=== PATIENT | male | born 1950 | race Caucasian/White ===

== ENCOUNTER → 2023-03-23 | Outpatient (CLI) | payer MEDICARE, SELFPAY ==
--- NOTE | 2023-03-23 08:58 | ART_ITS ---
Reason For Study: PVD Procedure A bilateral lower extremity continuous wave Doppler with analog waveform analysis and ankle brachial indexes. Left Segmental Pressures Left brachial= 134mmHg. Left posterior tibial artery = 162mmHg. Left dorsalis pedis artery = 142mmHg. Left digit = 106 mmHg. The left posterior tibial artery waveforms are triphasic. The left dorsalis pedis waveforms are triphasic. Right Segmental Pressures Right brachial= 128mmHg. Right posterior tibial artery = 148mmHg. Right dorsalis pedis artery = 125mmHg. Right digit = 114 mmHg. The right posterior tibial artery waveforms are triphasic. The right dorsalis pedis waveforms are triphasic. Indices The right ankle brachial index by the posterior tibial artery is 1.10. The right ankle brachial index by the dorsalis pedis is 0.93. The right digital-brachial index is 0.85. The left ankle brachial index by the posterior tibial artery is 1.21. The left ankle brachial index by the dorsalis pedis is 1.06. The left digital-brachial index is 0.79. VL/Ankle Brachial Index Interpretation Summary Bilateral normal at rest with triphasic flow and GERMAN 1.1 and 1.21. Ordering Physician: Corky Coelho Referring Physician: CORKY COELHO DR. Performed By: Enrique Dougherty RVT
== END | disposition home or self-care (01) ==
PROVIDERS: Referring Provider Surgery Vascular Surgery; Visit Provider Surgery Vascular Surgery
DX: I71.43 Infrarenal abdominal aortic aneurysm, without rupture (principal); I73.9 Peripheral vascular disease, unspecified; Z95.828 Presence of other vascular implants and grafts
CPT/HCPCS: 93922

== ENCOUNTER → 2023-04-03 | Outpatient (CLI) | payer MEDICARE, SELFPAY ==
--- NOTE | 2023-04-03 13:57 | CT_ITS ---
INDICATION: AAA EXAMINATION: CTA abdomen and pelvis - TECHNIQUE: Routine abdominal CT angiogram protocol was performed with IV contrast. MIP images provided. A radiation dose optimization technique was used for this scan. IV Contrast dosage and agent: 100mL Isovue-370 RADIATION DOSAGE (If Supplied By Facility): CTDIvol = ( 34.03 ) mGy, DLP = ( 961.86 ) mGycm COMPARISON: None FINDINGS: Lung bases: Normal. Heart size normal. Atherosclerotic calcifications incidentally noted in the visualized coronary arteries. Liver: Normal. No bile ductal dilatation. Portal vein diameter is 1.6 cm. Gallbladder: Normal. Spleen: There are too numerous to count calcified granulomata of varying sizes in the spleen. Adrenal gland: Normal. Kidneys: Normal. No hydronephrosis or stone formation. There is hypoperfusion and atrophy in the right lower pole. Rounded, hypodense 1.7 cm structure at the midpole the right kidney consistent with a cyst. There is 1 cm hypodense lesion consistent with a cortical cyst is seen in the posterior medial upper pole of the left kidney. Pancreas:Normal. Bowel gas pattern: Nonobstructive. Appendix: Normal. Free air: None. Free fluid: None. Pelvis: There are coarse calcifications in the borderline to mildly enlarged prostate gland. Pelvic organs: No mass lesion noted. The urinary bladder is unremarkable. Bone survey: No aggressive bony lesions. No acute fractures. Multilevel degenerative changes with bridging endplate osteophytes seen in the lower thoracic spine. There are also degenerative changes in the lumbar spine, with disc height narrowing and endplate osteophyte formation most prominent at L5-S1. Adenopathy: No significant pathologic adenopathy detected. Other: None. Vascular: There is a patent bifurcated aortic endograft extending from the renal arteries to the iliac bifurcations. Fusiform dilatation of the aorta reaches maximal diameters of 4.58 x 4.81 cm (series 602 image 88, series 601 image 64). No demonstrated endoleak. There is atherosclerotic calcific plaquing also noted in the proximal internal iliac arteries. The diameter of the distal main trunk of the left internal iliac artery reaching 9.5 x 10.5 mm. The bilateral external iliac arteries are widely patent. Incidental note of a very small caliber celiac trunk, giving rise to an accessory left hepatic and small splenic artery branches, while the dominant hepatic artery branches arise from the superior mesenteric artery. There is collateral backfilling of the inferior mesenteric artery branches, but the main trunk of that vessel is occluded. The bilateral orthotopic renal arteries are widely patent. There is an accessory right renal artery taking arise from the abdominal aorta at the level of the L3-4 interspace, which fills by collateral flow. CT/CTA Abd/Pelvis W/WO Contrast IMPRESSION: 1. Successful prior placement of bifurcated aortoiliac endograft. The surrounding thrombosed infrarenal abdominal aortic aneurysm is 4.8 cm in greatest diameter. No demonstrated endoleak. 2. Patent bilateral orthotopic renal arteries. There is an accessory artery to the right lower pole taking origin from the aortic aneurysm at the L3-4 level. While this fills by collateral flow, the lower pole right kidney shows hypoperfusion and a mild degree of atrophy. 3. There are sclerotic calcifications also seen in the visualized coronary arteries. The heart size is normal. 4. Incidental note also is a very small caliber celiac trunk, giving rise to a small splenic artery and an accessory left hepatic artery. The dominant hepatic arteries arise from the superior mesenteric artery. Inferior mesenteric artery branches fill by collateral flow. 5. Incidental note of benign-appearing bilateral renal cysts, as described. No hydronephrosis. 6. Too numerous to count calcified granulomata in the spleen. 7. Multilevel degenerative changes of the spine. Electronically Signed: Mark Rocha MD at 14:48 EDT Reading Location ID and State: [id number] / Unknown , Service support ,
[2023-04-03 14:26] LABS: EGFR FINGERSTICK > 60.0000 mL/min (>60)
== END | disposition home or self-care (01) ==
PROVIDERS: Referring Provider Surgery Vascular Surgery; Visit Provider Surgery Vascular Surgery
DX: I71.43 Infrarenal abdominal aortic aneurysm, without rupture (principal); Z95.828 Presence of other vascular implants and grafts
CPT/HCPCS: 74174; Q9967

== ENCOUNTER → 2024-05-03 | Outpatient (CLI) | payer MEDICARE, SELFPAY ==
--- NOTE | 2024-05-03 07:57 | CT_ITS ---
STUDY: CTA ABDOMEN AND PELVIS WITH CONTRAST REASON FOR EXAM: Male, 73 years old. 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 IV 100mL Isovue-370 was administered. Sagittal and coronal images were reconstructed. Individualized dose optimization techniques were used for this CT. COMPARISON: Comparison is made with prior study dated April 03, 2023. FINDINGS: Increased markings at the right lung base suggestive of scarring. Coronary artery calcification. Normal liver. Normal gallbladder and extrahepatic biliary system. There are multiple benign calcified granulomata of the spleen. Normal pancreas. Normal bilateral adrenal glands. Normal right kidney. Normal left kidney. Normal visualized stomach. Normal small intestine. Normal colon. The appendix is visualized and appears normal. Once again, the patient is status post endoluminal stent grafting of the [place] abdominal aorta. The lower limbs extend into the right and left common iliac arteries. There is mural thrombus within the [place] abdominal aorta. The [place] abdominal aorta has a transverse dimension of 4.3 cm. Normal inferior vena cava. Normal retroperitoneum. Normal urinary bladder. Normal abdominal wall. There are diffuse degenerative changes of the visualized lumbar spine. CT/CTA Abd/Pelvis W/WO Contrast IMPRESSION: Stable appearance of the aortic stent grafting in the right and left external iliac artery grafting. Stable dilatation of the abdominal aorta with mural thrombus. Electronically Signed: Paul Rodríguez MD at 15:25 EDT ,
--- NOTE | 2024-05-03 07:58 | ART_ITS ---
Reason For Study: Atherosclerosis Procedure A bilateral lower extremity continuous wave Doppler with analog waveform analysis and ankle brachial indexes. Left Segmental Pressures Left brachial= 142mmHg. Left posterior tibial artery = 163mmHg. Left dorsalis pedis artery = 168mmHg. Left digit = 95 mmHg. The left dorsalis pedis waveforms are triphasic. The left posterior tibial artery waveforms are triphasic. Right Segmental Pressures Right brachial= 131mmHg. Right posterior tibial artery = 170mmHg. Right dorsalis pedis artery = 149mmHg. Right digit = 100 mmHg. The right dorsalis pedis waveforms are triphasic. The right posterior tibial artery waveforms are triphasic. Indices The right ankle brachial index by the dorsalis pedis is 1.05. The right ankle brachial index by the posterior tibial artery is 1.20. The right digital-brachial index is 0.70. The left ankle brachial index by the dorsalis pedis is 1.18. The left ankle brachial index by the posterior tibial artery is 1.15. The left digital-brachial index is 0.67. VL/Ankle Brachial Index Interpretation Summary Resting ankle-brachial indices appear bilaterally normal. Ordering Physician: Beltran Borjas Referring Physician: Olu Wilson Performed By: Kati Harris RVT
[2024-05-03 08:31] LABS: CREATININE FINGERSTICK < 1.0 mg/dL (0.70-1.30); EGFR FINGERSTICK > 60.0000 mL/min (>60)
== END | disposition home or self-care (01) ==
PROVIDERS: Referring Provider Surgery Vascular Surgery; Visit Provider Surgery Vascular Surgery
DX: I71.43 Infrarenal abdominal aortic aneurysm, without rupture (principal); I70.213 Atherosclerosis of native arteries of extremities with intermittent claudication, bilateral legs; I10 Essential (primary) hypertension; Z48.812 Encounter for surgical aftercare following surgery on the circulatory system; Z95.828 Presence of other vascular implants and grafts; I65.23 Occlusion and stenosis of bilateral carotid arteries; I51.9 Heart disease, unspecified; I25.2 Old myocardial infarction
CPT/HCPCS: 74174; 93922; Q9967

== ENCOUNTER → 2025-08-21 | Outpatient (CLI) | payer MEDICARE, SELFPAY ==
--- NOTE | 2025-08-21 08:42 | ART_ITS ---
Reason For Study Reason For Study: HX AAA Repair / PVD Procedure A bilateral lower extremity continuous wave Doppler with analog waveform analysis and ankle brachial indexes. Left Segmental Pressures Left brachial= 132mmHg. Left posterior tibial artery = 152mmHg. Left dorsalis pedis artery = 135mmHg. Left digit = 113 mmHg. The left posterior tibial artery waveforms are triphasic. The left dorsalis pedis waveforms are triphasic. Right Segmental Pressures Right brachial= 132mmHg. Right posterior tibial artery = 156mmHg. Right dorsalis pedis artery = 138mmHg. Right digit = 103 mmHg. The right posterior tibial artery waveforms are triphasic. The right dorsalis pedis waveforms are triphasic. Indices The right ankle brachial index by the posterior tibial artery is 1.18. The right ankle brachial index by the dorsalis pedis is 1.05. The right digital-brachial index is 0.78. The left ankle brachial index by the posterior tibial artery is 1.15. The left ankle brachial index by the dorsalis pedis is 1.02. The left digital-brachial index is 0.86. VL/Ankle Brachial Index Interpretation Summary Resting ankle-brachial indices appear bilaterally normal. Ordering Physician: Beltran Borjas Referring Physician: Olu Wilson Performed By: Enrique Dougherty RVT
--- NOTE | 2025-08-21 08:42 | AAVD_ITS ---
Reason For Study Reason For Study: S/P AAA repair EVAR Aorta Measurements Aorta Doppler Measurements Proximal aorta measures2.35 x 2.37cm. in cross-sectional Peak systolic flow velocities within the proximal aorta axis. measure 61.4 cm/sec. Proximal aorta measures2.44cm. in longitudinal axis. Peak systolic flow velocities within the mid aorta measure Mid aorta measures2.99 x 2.89cm. in cross-sectional axis. 79.6 cm/sec. Mid aorta measures3.14cm. in longitudinal axis. Rt Limb Prox PSV - 65.1 cm/s AAA w/ EVAR repair noted at distal AO Rt Limb Dist PSV - 61.4 cm/s Normal flow is visualized in color doppler. Residual AAA sac measures 3.52 x 3.41cm in short and 3.43cm Lt Limb Prox PSV - 81.4 cm/s in long axis. Lt Limb Dist PSV - 92.2 cm/s. Rt Prox Limb short - 1.29 x 1.26cm Rt Prox Limb long - 1.20 cm Rt Dist Limb short - 1.21 x 1.14cm Rt Dist Limb long - 1.15cm Lt Prox Limb short - 1.30 x 1.26cm Lt Prox Limb long - 1.29cm Lt Dist Limb short - 1.20 x 1.18cm Lt Dist Limb long - 1.27cm. Left Iliac Artery Left iliac artery measures 1.30 x 1.16 cm. in the cross-sectional axis. Left iliac artery measures 1.21 cm. in the longitudinal axis. Peak systolic velocity in the left iliac artery measures 103.4 cm/sec. Mid/ Distal portions of Lt Iliac Artery non visualized due to gas/shadowing. Right Iliac Artery Right iliac artery measures 0.96 x 0.89 cm. in the cross-sectional axis. Right iliac artery measures 0.98 cm. in the longitudinal axis. Peak systolic velocity in the right iliac artery measures 108.6 cm/sec. VL/Abd Aortic/IVC Duplex scan Interpretation Summary No endoleak and patent EVAR. Residual sac 3.52cm. Ordering Physician: Beltran Borjas Referring Physician: Olu Wilson Performed By: Enrique Dougherty RVT
== END | disposition home or self-care (01) ==
LOC: CVS 08:41
PROVIDERS: Referring Provider Surgery Vascular Surgery; Visit Provider Surgery Vascular Surgery
DX: I73.9 Peripheral vascular disease, unspecified (principal); I71.43 Infrarenal abdominal aortic aneurysm, without rupture; I10 Essential (primary) hypertension; Z95.828 Presence of other vascular implants and grafts
CPT/HCPCS: 93922; 93978